=== PATIENT | male | born 1980 | race Caucasian/White ===

== ENCOUNTER 2018-07-03 12:37 | Inpatient (IN) ==
--- NOTE | 2018-07-03 13:27 | Diag Imaging Result Doc PS360 ---
EXAM: CHEST-PORTABLE HISTORY: chest pain TECHNIQUE: Chest single view COMPARISON: 09/28/2015 FINDINGS: The lungs are well expanded. The heart is not enlarged. The vessels are not distended. There are no infiltrates. No effusion identified. IMPRESSION: Negative exam. Electronically signed by Chong Holbrook 07/03/2018 1:25 PM
[2018-07-03 13:53] LABS: BILIRUBIN URINE NEGATIVE (NEGATIVE); BLOOD URINE NEGATIVE (NEGATIVE); CLARITY CLEAR (CLEAR); COLOR YELLOW; GLUCOSE URINE NEGATIVE (NEGATIVE); KETONE URINE NEGATIVE (NEGATIVE); LEUKOCYTES URINE NEGATIVE (NEGATIVE); NITRITE URINE NEGATIVE (NEGATIVE); PH URINE 6.5; PROTEIN URINE NEGATIVE (NEGATIVE); SP GRAVITY URINE 1.005; UROBILINOGEN URINE NORMAL
[2018-07-03 13:54] LABS: URINE BACTERIA NEGATIVE /HFP; URINE CAST NONE SEEN /LPF; URINE CRYSTAL NONE SEEN /HPF; URINE EPITHELIAL CELLS <10 /HPF (<10); URINE RBC <10 /HPF (<10); URINE SOURCE CLEAN CATCH; URINE WBC <10 /HPF (<10); URINE YEAST NONE SEEN /HPF
--- NOTE | 2018-07-03 14:03 | EKG Report ---
Test Performed on : 07/03/2018 12:44:25 PM Test Reason : chest pain Blood Pressure : / mmHG Vent. Rate : 082 BPM Atrial Rate : 082 BPM P-R Int : 156 ms QRS Dur : 138 ms QT Int : 404 ms P-R-T Axes : 018 002 -18 degrees QTc Int : 472 ms Normal sinus rhythm. Nonspecific intraventricular block Inferior infarct , age undetermined Cannot rule out Anterior infarct , age undetermined Abnormal ECG When compared with ECG of 03-JUL-2018 12:43, (Unconfirmed) Sinus rhythm. has replaced Wide QRS rhythm. Unconfirmed Result
[2018-07-03 15:19] LABS: INR 0.85
[2018-07-03 15:20] LABS: PTT 30.1 Seconds (22.3-41.8)
[2018-07-03 15:26] LABS: AGAP 12; ALBUMIN 4.5 g/dL (3.5-5.0); ALKALINE PHOSPHATASE 80 U/L (32-122); BUN 8 mg/dL (8-22); CALCIUM 9.1 mg/dL (8.8-10.2); CHLORIDE 103 mmol/L (98-107); COSMO 274; CREATININE 0.9 mg/dL (0.7-1.2); ESTIMATED GFR > 60; GLUCOSE 91 mg/dL (70-104); GOT 31 U/L (10-34); GPT 53 U/L (10-44); POTASSIUM 4.3 mmol/L (3.5-5.1); SODIUM 138 mmol/L (136-145); TCO2 23 mmol/L (25-35); TOTAL PROTEIN 7.3 g/dL (6.3-8.3)
[2018-07-03 15:37] LABS: BASO# 0.05 X1000 (0.0-0.2); BASO% 0.5 % (0.0-0.8); EOS# 0.32 X1000 (0.0-0.7); EOS% 3.4 % (0.0-10.0); HEMATOCRIT 45.7 % (42.0-52.0); HEMOGLOBIN 15.5 g/dL (14.0-18.0); IMM GRAN# 0.02 X1000 (0.0-0.04); IMM GRAN% 0.2 % (0.0-0.5); LYMPH# 2.32 X1000 (1.2-3.4); LYMPH% 24.9 % (20.5-51.1); MCH 31.8 PG (27-31); MCHC 33.9 g/dL (33-37); MCV 93.8 FL (81-99); MONO# 0.58 X1000 (0.11-0.59); MONO% 6.2 % (1.7-9.3); MPV 10.8 FL (7.4-10.4); NEUT# 6.03 X1000 (1.4-6.5); NEUT% 64.8 % (42.2-75.2); PLT 267 X1000 (130-400); RBC 4.87 XMIL (4.7-6.1); RDW 13.4 % (11.5-14.5); WBC 9.32 X1000 (4.8-10.8)
--- NOTE | 2018-07-03 16:53 | PROVIDER DOCUMENTATION ---
This chart was entered by Ayla Ovalle Scribe, acting as scribe for Parth Thompson MD. HPI-Chest Pain - General Chief Complaint: Chest Pain Stated Complaint: CHEST PAINS/DIZZINESS Time Seen by Provider: 07/03/18 12:57 Source: patient Allergies/Adverse Reactions: Patient Allergies Allergy/AdvReac Type Severity Reaction Status Date / Time No Known Allergies Allergy Verified 07/03/18 15:52 Home Medications: Home Medication List Medication Instructions Recorded Confirmed Last Taken Type ATORVAstatin [Lipitor] 40 mg PO QHS #30 tablet 09/29/15 Unknown Rx Aspirin EC 81 mg PO DAILY #30 tablet 09/29/15 Unknown Rx Lisinopril 10 mg PO DAILY #30 tab 07/16/17 Unknown Rx Metoprolol Tartrate 25 mg PO BID #60 tab 07/16/17 Unknown Rx - History of Present Illness-CP Nature of Presenting Problem: 38 yom presents to ED c/o sharp left side chest pain that radiates and causes numbness to left arm, dizziness and SOB that started while at work around 11am today. Pt states he took an 81mg aspirin this morning. Pt denies nausea or vomiting. Pt has hx of ID, HTN and hyperlipidemia. Location: reports: substernal Chest Pain Radiation: reports: arms (left) Quality of Pain: reports: sharp Onset/Duration: 1-3 hours ago Timing: still present Modifying Factors: improves with: nothing Associated Symptoms: reports: dizziness, shortness of breath. denies: nausea Aspirin Treatment Today: 81 mg x 1 Review of Systems - Adult - REVIEW OF SYSTEMS - ADULT Constitutional: reports: see HPI. denies: chills, fever, fatique Eyes: reports: no symptoms reported Ears, Nose, Mouth & Throat: reports: no symptoms reported Cardiovascular: reports: see HPI, chest pain. denies: syncope Respiratory: reports: see HPI, shortness of breath. denies: cough, wheezing Gastrointestinal: reports: no symptoms reported Genitourinary: reports: no symptoms reported Musculoskeletal: reports: no symptoms reported Integumentary: reports: no symptoms reported Neurological: reports: no symptoms reported Psychiatric: reports: no symptoms reported Endocrine: reports: no symptoms reported Hematologic/Lymphatic: reports: no symptoms reported Allergic/Immunologic: reports: no symptoms reported All Other Systems: Reviewed and Negative Past History - Adult - PAST MEDICAL HISTORY-ADULT Review of Records: reports: Nursing Assessment Review, Medications Reviewed, Social history reviewed & non-contributory. Major Childhood Illnesses: reports: denies history Cardiovascular: reports: ID - PRIOR SURGERIES/PROCEDURES Surgical/Procedure History: reports: cardiac stent - IMMUNIZATION STATUS Childhood Immunizations: See Nurse Assessment Flu Vaccine: See Nurse Assessment - FAMILY HISTORY Family History: reviewed, not pertinent Physical Exam-General - PHYSICAL EXAM-ADULT Initial Vital Signs Reviewed: Yes - CONSTITUTIONAL General Appearance: appears well, alert, no apparent distress. negative: anxious, combative - EYES Eyes: PERRL/EOMI, pink conjunctivae. negative: photophobia - HEAD, EARS, NOSE, MOUTH & THROAT HENMT: moist mucous membranes, normal ENT inspection. negative: angioedema - NECK Neck: non-tender, full range of motion, supple, normal inspection. negative: Brudzinski's sign, carotid bruit - RESPIRATORY Respiratory: chest non-tender, lungs clear, normal breath sounds, no pleuratic chest pain, no respiratory distress, no accessory muscle use. negative: crackles, rales, rhonchi - CARDIOVASCULAR Cardiovascular: normal peripheral pulses, regular rate, rhythm, no edema, no gallop, no JVD, no murmur. negative: bradycardia, tachycardia - GASTROINTESTINAL (ABDOMEN) Abdominal Exam: normal bowel sounds, non tender, soft. negative: guarding, rigid, rebound - LYMPHATIC Lymphatic: no adenopathy. negative: striations - MUSCULOSKELETAL Back Exam: normal inspection. negative: swelling Extremity: normal range of motion, normal inspection. negative: swelling - SKIN Integumentary: normal color, normal turgor, warm/dry. negative: diaphoresis, jaundice - PSYCHIATRIC Psych/Mental Status: normal mood/affect, normal thought content, normal thought process, oriented x 3. negative: paranoid - HEART Score HEART Score: History: Moderately Suspicious HEART Score: ECG: Non-Specific Repolarization Disturbance/LBBB/PM HEART Score: Age: < or = 45 Years HEART Score: Risk Factors for Atherosclerotic Disease: > or = 3 Risk Factors or History of Atherosclerotic Disease HEART Score: Troponin: < or = Normal Limit Total HEART Score:: 4 Progress - PLAN OF CARE/RESULTS Progress/Plan/Lab Results: Vital Signs - 8 hr 07/03/18 12:40 07/03/18 13:00 07/03/18 14:00 Temperature 98.0 F Pulse Rate 77 72 65 Respiratory Rate 18 19 18 Blood Pressure 132/77 147/90 133/86 O2 Sat by Pulse Oximetry 96 96 93 L 07/03/18 15:00 Temperature Pulse Rate 69 Respiratory Rate 18 Blood Pressure 126/87 O2 Sat by Pulse Oximetry 91 L Laboratory Results - last 24 hr 07/03/18 07/03/18 07/03/18 13:30 13:30 13:30 WBC 9.32 RBC 4.87 Hgb 15.5 Hct 45.7 MCV 93.8 MCH 31.8 H MCHC 33.9 RDW Std Deviation 13.4 Plt Count 267 MPV 10.8 H Immature Gran % (Auto) 0.2 Neut % (Auto) 64.8 Lymph % (Auto) 24.9 [place] % (Auto) 6.2 Eos % (Auto) 3.4 Baso % (Auto) 0.5 Immature Gran # (Auto) 0.02 Neut # (Auto) 6.03 Lymph # (Auto) 2.32 [place] # (Auto) 0.58 Eos # (Auto) 0.32 Baso # (Auto) 0.05 PT INR PTT (Actin FS) Sodium 138 Potassium 4.3 Chloride 103 Carbon Dioxide 23 L Anion Gap 12 BUN 8 Creatinine 0.9 Estimated GFR/1.73 m2 > 60 BUN/Creatinine Ratio 9 Glucose 91 Calculated Osmolality 274 Calcium 9.1 Total Bilirubin 0.20 AST 31 ALT 53 H Alkaline Phosphatase 80 Troponin T < 0.010 [id number] Pept Total Protein 7.3 Albumin 4.5 Globulin 3.0 Albumin/Globulin Ratio 2.0 Urine Source Urine Color Urine Clarity Urine pH Ur Specific [place] Urine Protein Urine Ketones Urine Blood Urine Nitrite Urine Bilirubin Urine Urobilinogen Urine Microscopic RBC Urine WBC Urine Microscopic WBC Ur Epithelial Cells Urine Crystals Urine Bacteria Urine Casts Urine Yeast Urine Glucose 07/03/18 07/03/18 07/03/18 13:30 13:30 13:42 WBC RBC Hgb Hct MCV MCH MCHC RDW Std Deviation Plt Count MPV Immature Gran % (Auto) Neut % (Auto) Lymph % (Auto) [place] % (Auto) Eos % (Auto) Baso % (Auto) Immature Gran # (Auto) Neut # (Auto) Lymph # (Auto) [place] # (Auto) Eos # (Auto) Baso # (Auto) PT 12.0 INR 0.85 PTT (Actin FS) 30.1 Sodium Potassium Chloride Carbon Dioxide Anion Gap BUN Creatinine Estimated GFR/1.73 m2 BUN/Creatinine Ratio Glucose Calculated Osmolality Calcium Total Bilirubin AST ALT Alkaline Phosphatase Troponin T [id number] Pept 38 Total Protein Albumin Globulin Albumin/Globulin Ratio Urine Source CLEAN CATCH Urine Color YELLOW Urine Clarity CLEAR Urine pH 6.5 Ur Specific [place] 1.005 Urine Protein NEGATIVE Urine Ketones NEGATIVE Urine Blood NEGATIVE Urine Nitrite NEGATIVE Urine Bilirubin NEGATIVE Urine Urobilinogen NORMAL Urine Microscopic RBC <10 Urine WBC NEGATIVE Urine Microscopic WBC <10 Ur Epithelial Cells <10 Urine Crystals NONE SEEN Urine Bacteria NEGATIVE Urine Casts NONE SEEN Urine Yeast NONE SEEN Urine Glucose NEGATIVE Orders Category Date Time Status Nursing- Obtain EKG ONCE Care 07/03/18 13:04 Active CHEST-PORTABLE [RAD] Stat Exams 07/03/18 13:04 Completed CBC WITH ELECTRONIC DIFF [HEME] Stat Lab 07/03/18 13:30 Completed COMPREHENSIVE METABOLIC PANEL [CHEM] Stat Lab 07/03/18 13:30 Completed PRO B-NATRIURETIC PEPTIDE Stat Lab 07/03/18 13:30 Completed PROTIME WITH INR [COAG] Stat Lab 07/03/18 13:30 Completed PTT [COAG] Stat Lab 07/03/18 13:30 Completed TROPONIN T Stat Lab 07/03/18 13:[address] W/POSS RFLX CULT [URINALYSIS] Stat Lab 07/03/18 13:42 Completed EKG [EKG] Stat Ther 07/03/18 13:04 Draft Transfer/Admit Order [TRANSFER] Routine Transfer 07/03/18 16:32 Ordered Result Diagrams: 07/03/18 13:30 07/03/18 13:30 - REASSESSMENT Reassessment #1 Time Reassessed: 14:46 Status: improving - EKG 1 Time of EKG reading by physician:: 12:44 EKG Read and Signed by:: Parth Thompson EKG Interpretation (*Must complete 3 of following elements*): Abnormal (nonspecific intraventricular block, inferior infarct age undetermined, cannot rule out anterior infarct age undetermined) Rate: 82 Rhythm: normal sinus [place]: normal ST Wave: normal - XRAY 1 XRAY: Bilateral XRAY Study: Chest Impression: See EMR Report (IMPRESSION: Negative exam. Electronically signed by Chong Holbrook 07/03/2018 1:25 PM) - CONSULTS/PCP/HOSPITALIST Notification #1 *Consult/PCP/Hospitalist*: Dr Siegel Time Discussed: 16:00 Consult Disposition: Will see in ED, Admit Departure - Departure Date of Disposition Decision: 07/03/18 Time of Disposition Decision: 16:51 DIAGNOSIS: Chest pain, HTN (hypertension) with goal to be determined Disposition: ADMITTED INPATIENT 09 Certified Medical Emergency: Emergent Condition: Fair Referrals and Follow-Ups: Tato Belle MD [Primary Care Provider] - - Critical Care Note This patient required my direct & personal management of CC.: No Attestation - Physician/ CASPER Attestation Patient care was provided by Advanced Practice Provider:: No The physician spent face to face time with patient:: Yes Advanced Practice Provider documentation review:: Supervising physician onsite and consulted in the evaluation and care of this patient. The physician did have a face to face encounter with the patient. This chart was documented by the indicated scribe, (Ayla Ovalle Scribe) and accurately reflects the services I performed and decisions made by me, Parth Thompson MD, as attested by the provider's signature.
[2018-07-03] MEDS ORDERED: TYLENOL PO PRN (18:11)
[2018-07-03] MEDS ORDERED: ZOFRAN IV PRN (18:11)
[2018-07-03] MEDS: LOVENOX SUBQ SCH (18:30)
--- NOTE | 2018-07-03 18:39 | EKG Report ---
Test Performed on : 07/03/2018 6:26:48 PM Test Reason : CHEST PAIN/PALP. Blood Pressure : / mmHG Vent. Rate : 075 BPM Atrial Rate : 075 BPM P-R Int : 152 ms QRS Dur : 142 ms QT Int : 416 ms P-R-T Axes : 029 012 -16 degrees QTc Int : 464 ms Normal sinus rhythm. Nonspecific intraventricular block Inferior infarct (cited on or before 28-SEP-2015) Cannot rule out Anterior infarct (cited on or before 28-SEP-2015) Abnormal ECG When compared with ECG of 03-JUL-2018 12:44, (Unconfirmed) No significant change was found Confirmed by José Overton MD ([id number]) on 07/07/2018 11:13:14 AM
--- NOTE | 2018-07-03 19:23 | HISTORY AND PHYSICAL ---
ADDENDUM: This is a 38-year-old gentleman complaining of chest pain. He had some palpitations associated and then he had some radiation to his neck. This has happened before. He has had workups before. They have been negative. His workup here was really unremarkable. He does have a history of PCI and stent in 2011. He had EKG which was nonspecific, possibly an inferior MA. He has had a stent to his RCA, from what I understand. PHYSICAL EXAMINATION: GENERAL: Physical exam unremarkable. CARDIOVASCULAR: Regular rate and rhythm. PULMONARY: Bilateral breath sounds. ASSESSMENT AND PLAN: I do not know how compliant he is with his medications. He is supposed to be on lisinopril. I am not sure if he is taking it. I am not sure he is on Lopressor, which he should also be taking. In any case the plan is we will observe him and get stress and echocardiogram tomorrow, and see how he does. This is a [id number] encounter note with YOVANI Sepncer. cc: Flaco Siegel MD
[2018-07-03 19:54] LABS: CK INDEX 0.7 (0.0-2.5); CK-MB 2.2 ng/mL (0.0-5.0)
[2018-07-03] MEDS: NS 1,000 ML IV SCH (20:51)
[2018-07-03] MEDS: LIPITOR PO SCH (20:51)
[2018-07-03] MEDS: COZAAR PO SCH (20:52)
--- NOTE | 2018-07-03 23:13 | HISTORY AND PHYSICAL ---
PRIMARY CARE PROVIDER: Dr. Belle in [place]. REFLECTOR DRILLER AND DEBURRER: None. HISTORY OF PRESENT ILLNESS: Mr. Neff is a 38-year-old male who carries a past medical history of coronary artery disease, status post stenting to the RCA in 2011, hyperlipidemia and hypertension. 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 He had 2 sharp weird "discomfort" type pains in the left side of his chest associated with dizziness, then he felt maybe they were more like heart flutters. It has been going on and off since 11 a.m. He thought maybe he got short of breath. There was no nausea. He states he stays sweaty. He felt he had some left arm numbness. This sensation was nothing like his previous MO. His previous MO felt like somebody dropped a dump truck on his chest and he could not get any relief. He does state that since that time he has been very nervous, and he tends to come frequently to ERs quite a bit anytime he feels anything strange. First set of cardiac enzymes are negative. Chest x-ray was negative. PAST MEDICAL HISTORY: 1. Coronary artery disease, status post stenting to the RCA on 05/31/2011. 2. Hypertension. 3. Hyperlipidemia. 4. Tobacco abuse. PAST SURGICAL HISTORY: 1. Stenting to the RCA in 05/2011. 2. Tooth extraction in 2018. ALLERGIES: No known drug allergies. MEDICATIONS: Home medications have not been reconciled. According to the patient, he takes lisinopril, some type of cholesterol medication and a low-dose aspirin. REVIEW OF SYSTEMS: A 14-point review of systems was completed and negative except for those mentioned in HPI. PHYSICAL EXAMINATION: VITAL SIGNS: Temperature is 98 degrees, heart rate 59, respirations 18, blood pressure 131/90, O2 saturation is 95% on room air. GENERAL: Mr. Neff is a 38-year-old male who is sitting up on the stretcher in no acute distress. HEENT: Atraumatic, normocephalic. PERRL. NECK: Supple. Trachea midline. CARDIOVASCULAR: S1, S2 appreciated. No murmurs, gallops, rubs noted. RESPIRATORY: Lung sounds clear to excursion. Nonlabored breathing. GASTROINTESTINAL: Soft, nontender, nondistended. Positive bowel sounds in 4 quadrants. EXTREMITIES: Lower extremities negative for edema. No clubbing, no cyanosis. Bilateral pedal pulses are bounding. SKIN: Warm, dry and intact. NEUROLOGIC: No focal deficits noted. DIAGNOSTIC DATA: Chest x-ray: Negative exam. EKG: Normal sinus rhythm at 82 beats per minute. LABORATORY DATA: White count 9, hemoglobin and hematocrit 15 and 45, platelet count is 267,000. Sodium 138, potassium 4.3, BUN 8, creatinine 0.9, blood glucose is 91, AST 53. Troponin less than 0.010. ProBNP is 38. Urinalysis is negative. ASSESSMENT AND PLAN: 1. Chest pain in a patient with coronary artery disease, status post stenting in 2011. We will continue to trend his cardiac enzymes. First set has been negative. We will recheck echocardiogram, possible stress test in the a.m. We will make him NPO after midnight, continue his home medications, continue full-dose aspirin. 2. Hypertension. Continue home medications when reconciled. 3. Hyperlipidemia. We will continue statin. Check lipid profile. 4. Further recommendations to follow physician evaluation, laboratory and diagnostic data. Dictated by YOVANI Delong for Flaco Siegel MD cc: Tato Siegel MD
[2018-07-04 03:26] LABS: CK INDEX 0.7 (0.0-2.5); CK-MB 2.24 ng/mL (0.0-5.0)
[2018-07-04] MEDS: PRILOSEC PO SCH (06:12)
[2018-07-04] MEDS: NS 1,000 ML IV SCH (06:55)
[2018-07-04 07:49] LABS: BASO# 0.04 X1000 (0.0-0.2); BASO% 0.6 % (0.0-0.8); EOS# 0.23 X1000 (0.0-0.7); EOS% 3.2 % (0.0-10.0); HEMATOCRIT 43.9 % (42.0-52.0); HEMOGLOBIN 14.9 g/dL (14.0-18.0); IMM GRAN# 0.01 X1000 (0.0-0.04); IMM GRAN% 0.1 % (0.0-0.5); LYMPH% 23.7 % (20.5-51.1); MCH 31.8 PG (27-31); MCHC 33.9 g/dL (33-37); MCV 93.6 FL (81-99); MONO# 0.54 X1000 (0.11-0.59); MONO% 7.5 % (1.7-9.3); MPV 10.5 FL (7.4-10.4); NEUT# 4.64 X1000 (1.4-6.5); NEUT% 64.9 % (42.2-75.2); PLT 222 X1000 (130-400); RBC 4.69 XMIL (4.7-6.1); RDW 13.2 % (11.5-14.5); WBC 7.16 X1000 (4.8-10.8)
[2018-07-04 08:03] LABS: AGAP 11; ALBUMIN 3.9 g/dL (3.5-5.0); ALKALINE PHOSPHATASE 71 U/L (32-122); BUN 10 mg/dL (8-22); CALCIUM 8.7 mg/dL (8.8-10.2); CHLORIDE 109 mmol/L (98-107); CHOLESTEROL 173 mg/dL (0-200); COSMO 279; CREATININE 0.8 mg/dL (0.7-1.2); ESTIMATED GFR > 60; GLUCOSE 111 mg/dL (70-104); GOT 29 U/L (10-34); GPT 51 U/L (10-44); HDL 31 mg/dL (35-55); LDL 118 mg/dL; POTASSIUM 4.7 mmol/L (3.5-5.1); SODIUM 140 mmol/L (136-145); TCO2 21 mmol/L (25-35); TOTAL PROTEIN 6.6 g/dL (6.3-8.3); TRIGLYCERIDES 120 mg/dL (39-160); VLDL 24 mg/dL
[2018-07-04 08:30] LABS: HEMOGLOBIN A1C 5.5 % (4.8-6.0)
[2018-07-04] MEDS ORDERED: PRINIVIL PO SCH (09:00)
[2018-07-04] MEDS ORDERED: ASPIRIN PO SCH (09:00)
[2018-07-04] MEDS ORDERED: ASPIRIN EC PO SCH (09:00)
--- NOTE | 2018-07-04 11:26 | GRADED EXERCISE REPORT ---
DATE: 07/04/2018 PROCEDURE: Lexiscan. INDICATIONS: Chest pain, history of CAD, status post PCI. DESCRIPTION OF PROCEDURE IN DETAIL: Briefly underwent Lexiscan imaging per protocol. Baseline heart rate 64, baseline blood pressure 138/98. He has Q-waves consistent with an inferior wall VT, undetermined age. This is unchanged. He underwent Lexiscan infusion of 0.4 mg; did not feel any chest pain or pressure or any symptoms he had previously. He did have ST depression in lead 3 that was greater than a millimeter, but it was in only 1 lead. Peak heart rate 103, peak blood pressure 145/87. The test was felt to be clinically negative, electrically negative. Echo revealed aneurysmal dilation. I think of his ventricle. Discussed this with Dr. Dickerson prior to institution of the test, which he has tolerated without difficulty. Myocardial perfusion will be performed separately. cc: Flaco Siegel MD
[2018-07-04] MEDS: COZAAR PO SCH (13:12)
--- NOTE | 2018-07-04 13:48 | CARDIOLOGY CONSULTATION ---
DATE: 07/04/2018 HISTORY OF PRESENT ILLNESS: Patient with known cardiac disease with stent placement in 2011 comes with complaints of having had sharp episodes of chest discomfort, left-sided, which he describes as a needle-like sensation; however, he has noted some fluttery sensation as well associated with shortness of breath. This is been intermittently off and on recently. He had noticed increasing diaphoresis, came to the emergency room, was admitted. Electrocardiogram revealed normal sinus rhythm, old inferior myocardial infarction. The patient was ruled out for myocardial infarction by cardiac enzymes. Chest x-ray was unremarkable. REVIEW OF SYSTEMS: A 14-point review of system was done. GI System: There is no history of nausea/vomiting, diarrhea. There is no history of hematemesis or melena. Central nervous system: No focal weakness to suggest a CVA or TIA. Genitourinary System: There is no dysuria or hematuria. PAST MEDICAL HISTORY: Hypertension, hyperlipidemia, tobacco abuse, coronary artery disease status post stent placement to right coronary artery on 05/31/2011, history of NM at that time. ALLERGIES: No known drug allergies. SOCIAL HISTORY: Patient smokes. There is no history of alcohol abuse. PHYSICAL EXAMINATION: On examination, blood pressure was 130/90. Cardiovascular System: Normal jugular venous pressure. There was no thyromegaly. No carotid bruit. First and second heart sounds were heard. There was no S3 gallop. Respiratory System: Normal air entry. There are no crepitations or rhonchi. Abdomen was soft, nontender. There was no guarding or rigidity. Bowel sounds were heard. Central nervous system: Alert and oriented. Moving all 4 extremities. Examination of extremities revealed no pedal edema. HEENT: Atraumatic, normocephalic. Pupils were equal and reacting to light. ASSESSMENT AND PLAN: Mr. Redd Neff is a 38-year-old gentleman with history of coronary artery disease, stent placement to right coronary artery in the past, with hypertension and hyperlipidemias, who comes with complaints of atypical chest pain associated with diaphoresis. The patient has been ruled out for myocardial infarction by cardiac enzymes. RECOMMENDATIONS: 1. He underwent an echocardiogram to assess cardiac and valvular function, and he also underwent a stress test. We will await the reports of the same, which will be read today. 2. He is on aspirin and lipid-lowering agents. I have not made any changes. 3. Hypertension. Continue with his SOL inhibitors. Thank you for the consult. We will follow hospital course. cc: Edvin Lopez MD
[2018-07-04] MEDS ORDERED: LEXISCAN ONE (15:02)
--- NOTE | 2018-07-04 17:53 | Diag Imaging Result Document ---
PROCEDURE NAME: MYOCARDIAL PERF SCAN, STR/REST - 07/04/2018 LEXISCAN SESTAMIBI INTERPRETATION: SUMMARY: The patient was administered 14.7 mCi of technetium-99m sestamibi, after which resting cardiac images were obtained. The patient was subsequently administered Lexiscan 0.4 mg intravenously, after which the heart rate went from 64 beats per minute to 103 beats per minute and the blood pressure went from 138/98 to 145/87. With Lexiscan, the patient denied chest discomfort. Following the administration of Lexiscan, the patient was administered 46.1 mCi of technetium-99m sestamibi, after which gated stress cardiac images were obtained. Baseline ECG demonstrates sinus rhythm and old inferior infarct. With Lexiscan, there were no diagnostic ST-segment changes. SPECT images were reconstructed in the short, horizontal long, and vertical long axes. Review of these images demonstrated a medium-size severe defect in uptake in the basal to mid inferolateral region of the left ventricle on stress images, which appears unchanged on resting images. There is also a small area of mild to moderately reduced activity in the inferior apex left ventricle on stress images, which improves on resting images. Gated images demonstrate calculated left ventricular ejection fraction of 46% with severe hypokinesis of the basal to mid inferolateral region. CONCLUSIONS: 1. Adequate response to Lexiscan. 2. Clinically negative for chest pain. 3. Electrocardiographically negative for Lexiscan-induced myocardial ischemia. 4. Lexiscan sestamibi images demonstrate medium-size fixed severe defect in the basal to mid inferolateral region with corresponding severe hypokinesis consistent with previous infarction in this territory. There is a small region of mild to moderate reversibility in the inferior apex, suggesting a small area of inducible myocardial ischemia in this region. Calculated left ejection fraction 46%. Clinical correlation recommended. cc: Wesley Murphy MD
[2018-07-04] MEDS: LOVENOX SUBQ SCH (18:22)
[2018-07-04] MEDS: LIPITOR PO SCH (20:25)
[2018-07-05 05:28] VITALS: BP 138/84
[2018-07-05] MEDS: PRILOSEC PO SCH (06:19)
--- NOTE | 2018-07-05 14:13 | DISCHARGE SUMMARY ---
ADMISSION DATE: 07/03/2018 DISCHARGE DATE: 07/05/2018 DATE OF TRANSFER TO [facility]: 07/05/2018 ADMISSION DIAGNOSES: 1. Chest pain in a patient with coronary artery disease and stent in 2011. 2. Hypertension. 3. Hyperlipidemia. TRANSFER DIAGNOSES: 1. Chest pain in a patient with coronary artery disease, status post cardiac stenting in 2011. 2. Hypertension. 3. Hyperlipidemia. CONSULTATIONS: Dr. Lopez with cardiology. DISCHARGE SURGERIES OR PROCEDURES: He had a myocardial perfusion scan on the which was negative for chest pain, demonstrated a medium size fixed severe defect in the basal to mid inferolateral region with corresponding severe hypokinesis consistent with previous infarction in this territory. Also a small region of mild to moderate reversibility in the inferior apex suggesting a small area of inducible myocardial ischemia in this region. Calculated ejection fraction 46%. He had an exercise stress test with Q waves consistent with an inferior wall NE, age undetermined, but that was not new. There was no chest pain. He did have some ST depression in Lead III that was greater than 1 mm but was only in one lead, clinically negative. 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 HOSPITAL COURSE: Mr. Redd Neff is a 38-year-old male with a medical history of coronary artery disease who received cardiac stent to the RCA in 2011, also with history of hyperlipidemia and hypertension who presented to the emergency department on 07/03/2018. He was at work when he experienced 2 sharp weird discomfort-type pains in the left side of his chest associated with dizziness and that felt like heart flutters. He stated it had been on and off since around 11 o'clock that morning and felt a little shortness of breath but no nausea. He states he stays sweaty, and he had some left arm numbness. The sensation was nothing like his previous NE. Cardiology was consulted. He had perfusion scan and a stress test. The perfusion scan did show some small region of mild to moderate reversibility in the inferior apex suggesting a small area of inducible myocardial ischemia, but he had no chest pain during the procedure or during the stress test. Cardiology was consulted, and Dr. Lopez saw him and continued him on aspirin and lipid-lower agent. For his hypertension, he was still on SOL inhibitor. He never elevated his troponins though his CKs remained elevated at 338 and 322. Cholesterol levels were normal except for the HDL which was low. Hemoglobin A1C was normal at 5.5. He is a little bit overweight. So, he will be transferring to [facility] today for left heart cath. Last set of vital signs showed temperature 97.5, heart rate 74, respiratory rate 20, blood pressure 138/84, O2 saturation 99% on room air. LABORATORY DATA: White blood cells 7000, hemoglobin 14, hematocrit 43, platelet count 222,000, sodium 140, potassium 4.7, BUN 10, creatinine 0.8, glucose 111, A1C 5.5, calcium 8.7, magnesium 2.0, bilirubin 0.20, AST 29, ALT 51, CK 322, troponin less than 0.01, proBNP 38, albumin 3.9, triglycerides 120, total cholesterol 173, LDL 118, HDL 31. Urinalysis negative. PERTINENT IMAGING: Chest x-ray on the 10th negative exam. EKG on the 10th normal sinus rhythm, rate 75, QTc 464, no obvious ST changes. DISCHARGE DIET: Currently, he is n.p.o. He will be on a cardiac diet once he has his heart cath. DISCHARGE ACTIVITY: As tolerated. DISCHARGE FOLLOWUP: Dr. Lopez. DISCHARGE INSTRUCTIONS: Will be depending on his stay at [facility]. DISCHARGE MEDICATIONS: 1. Atorvastatin 40 mg p.o. nightly. 2. Aspirin enteric coated 81 mg p.o. daily. 3. Cozaar 25 mg p.o. daily. 4. Prilosec 20 mg p.o. daily. DISCHARGE DISPOSITION: Transfer to [facility]. Dictated by YOVANI Jorge for Flaco Siegel MD cc: MD Flaco Baez MD
== END 2018-07-05 08:15 | disposition short-term general hospital (02) | DRG 313 ==
LOC: P.MEDSURG 12:37 → P.ED 12:37 → OBSVTOIN 17:40
PROVIDERS: ATTEND Internal Medicine
CPT/HCPCS: 71010; 71045; 78452; 80053; 80061; 81001; 82550; 82553; 83036; 83735; 83880; 84484; 85025; 85610; 85730; 93005; 93010; 93017; 93306; 94761; 99285; A9270; A9500; C8929; J1650; J2785; J7030; Q9957